=== PATIENT | female | born 1955 | race Two or more races ===

== ENCOUNTER 2017-12-29 13:32 | Outpatient (CLI) | payer OTHER ==
[~2017-12-29 13:32] MED LIST: DICLOFENAC POTA50 MG PO
== END 2017-12-29 13:38 | disposition home or self-care (01) ==
LOC: MAMO-SONO 13:32 → NUCLEAR 14:00
DX: Z12.31 Encounter for screening mammogram for malignant neoplasm of breast (principal); N64.89 Other specified disorders of breast

== ENCOUNTER 2017-12-29 13:59 | Outpatient (CLI) | payer OTHER | END 2017-12-29 14:43 | disposition home or self-care (01) | LOC: NUCLEAR 13:59 | DX: M81.0 Age-related osteoporosis without current pathological fracture (principal) ==

== ENCOUNTER 2019-02-13 09:52 | Outpatient (CLI) | payer OTHER | END 2019-02-13 10:08 | disposition home or self-care (01) | LOC: MAMO-SONO 09:52 | DX: Z12.31 Encounter for screening mammogram for malignant neoplasm of breast (principal); Z87.898 Personal history of other specified conditions; N61.0 Mastitis without abscess; E04.1 Nontoxic single thyroid nodule ==

== ENCOUNTER 2019-06-19 08:22 | Outpatient (CLI) | payer OTHER | END 2019-06-19 08:38 | disposition home or self-care (01) | LOC: MRI 08:22 | DX: R42 Dizziness and giddiness (principal); R56.9 Unspecified convulsions | CPT/HCPCS: 70551 ==

== ENCOUNTER 2020-12-18 09:32 | Outpatient (CLI) | payer OTHER | END 2020-12-18 09:41 | disposition home or self-care (01) | LOC: RAD 09:32 | PROVIDERS: ATTEND Ophthalmology | DX: I10 Essential (primary) hypertension (principal); H25.012 Cortical age-related cataract, left eye ==

== ENCOUNTER 2021-08-11 08:00 | Outpatient (CLI) | payer OTHER | END 2021-08-11 17:33 | disposition home or self-care (01) | LOC: PPH VACUNA 08:00 | PROVIDERS: ATTEND Emergency Medicine Pediatric Emergency Medicine | DX: Z23 Encounter for immunization (principal) ==

== ENCOUNTER 2021-09-08 10:10 | Outpatient (CLI) | payer OTHER | END 2021-09-08 10:24 | disposition home or self-care (01) | LOC: MAMO-SONO 10:10 | PROVIDERS: ATTEND Internal Medicine Endocrinology, Diabetes & Metabolism | DX: E04.2 Nontoxic multinodular goiter (principal); N64.4 Mastodynia; Z12.31 Encounter for screening mammogram for malignant neoplasm of breast; E04.1 Nontoxic single thyroid nodule; N60.11 Diffuse cystic mastopathy of right breast; N60.12 Diffuse cystic mastopathy of left breast ==

== ENCOUNTER 2022-04-07 12:00 | Outpatient (CLI) | payer OTHER | END 2022-04-07 12:10 | disposition home or self-care (01) | LOC: PPH VACUNA 12:00 | PROVIDERS: ATTEND Emergency Medicine Pediatric Emergency Medicine | DX: Z23 Encounter for immunization (principal) ==

== ENCOUNTER 2022-12-13 | Outpatient (CLI) | payer OTHER | END 2022-12-13 00:15 | disposition home or self-care (01) | LOC: PPH VACUNA | PROVIDERS: ATTEND Emergency Medicine Pediatric Emergency Medicine | DX: Z23 Encounter for immunization (principal) ==

== ENCOUNTER 2023-04-29 11:16 | Outpatient (CLI) | payer OTHER | END 2023-04-29 11:25 | disposition home or self-care (01) | LOC: SONOGRAMA 11:16 | PROVIDERS: ATTEND Internal Medicine Endocrinology, Diabetes & Metabolism | DX: E04.1 Nontoxic single thyroid nodule (principal) ==

== ENCOUNTER 2023-10-27 10:30 | Outpatient (CLI) | payer OTHER | END 2023-10-27 10:31 | disposition home or self-care (01) | LOC: NUCLEAR 10:30 | PROVIDERS: ATTEND Family Medicine | DX: M85.80 Other specified disorders of bone density and structure, unspecified site (principal) ==

== ENCOUNTER 2023-10-27 11:01 | Outpatient (CLI) | payer OTHER | END 2023-10-27 11:05 | disposition home or self-care (01) | LOC: MAMO-SONO 11:01 | PROVIDERS: ATTEND Internal Medicine Endocrinology, Diabetes & Metabolism | DX: Z12.31 Encounter for screening mammogram for malignant neoplasm of breast (principal); N64.4 Mastodynia ==

== ENCOUNTER → 2024-07-11 | Outpatient (CLI) | payer OTHER | END | disposition home or self-care (01) | LOC: RAD 12:11 | DX: M99.01 Segmental and somatic dysfunction of cervical region (principal); M25.511 Pain in right shoulder ==

== ENCOUNTER 2025-06-14 12:20 | Outpatient (CLI) | payer OTHER | END 2025-06-14 12:25 | disposition home or self-care (01) | LOC: RAD 12:20 | DX: I11.9 Hypertensive heart disease without heart failure (principal) ==

== ENCOUNTER 2025-07-26 08:27 | Outpatient (CLI) | payer OTHER | END 2025-07-26 08:34 | disposition home or self-care (01) | LOC: RAD 08:27 | DX: M19.012 Primary osteoarthritis, left shoulder (principal) ==

== ENCOUNTER 2025-09-06 10:01 | Outpatient (CLI) | payer OTHER | END 2025-09-06 10:05 | disposition home or self-care (01) | LOC: RAD 10:01 | DX: S42.242A 4-part fracture of surgical neck of left humerus, initial encounter for closed fracture (principal) ==

== ENCOUNTER 2025-09-27 09:52 | Outpatient (CLI) | payer OTHER | END 2025-09-27 10:03 | disposition home or self-care (01) | LOC: RAD 09:52 | PROVIDERS: ATTEND Physical Medicine & Rehabilitation | DX: M54.2 Cervicalgia (principal); M54.59 Other low back pain ==

== ENCOUNTER 2025-10-07 08:38 | Outpatient (CLI) | payer OTHER | END 2025-10-07 08:50 | disposition home or self-care (01) | LOC: MAMO-SONO 08:38 | PROVIDERS: ATTEND Internal Medicine Endocrinology, Diabetes & Metabolism | DX: G31.84 Mild cognitive impairment of uncertain or unknown etiology (principal); N64.4 Mastodynia; E04.1 Nontoxic single thyroid nodule; Z12.31 Encounter for screening mammogram for malignant neoplasm of breast | CPT/HCPCS: 70551 ==

== ENCOUNTER 2025-11-01 10:23 | Outpatient (CLI) | payer OTHER | END 2025-11-01 10:24 | disposition home or self-care (01) | LOC: NUCLEAR 10:23 | DX: M81.0 Age-related osteoporosis without current pathological fracture (principal) ==